=== PATIENT | male | born 1970 | race Caucasian/White ===

== ENCOUNTER → 2016-04-25 | Outpatient (CLI) | payer BC ==
--- NOTE | 2016-04-25 12:47 | DX ---
Left 5th finger series 3 views 1203 hours. History: Persistent pain and swelling left 5th digit. Trauma 2 weeks ago. Findings: There is a tiny 1 mm calcification anterior to the 5th PIP joint. This could represent a sm all chip or avulsion fracture. Osseous structures are otherwise normal in appearance. No periosteal t hickening is seen or evidence of fracture line. Joint spaces are normal. There is mild soft tissue sw elling about the 5th digit. Impression: 1. Possible tiny chip or avulsion fracture projected anterior to the 5th PIP joint. Clinical correlat ion recommended.
== END ==
LOC: BMCIMAGING 12:08
PROVIDERS: ATTEND Family Medicine
DX: M79.645 Pain in left finger(s) (principal); R93.8 Abnormal findings on diagnostic imaging of other specified body structures